=== PATIENT | male | born 2000 | race Caucasian/White ===

== ENCOUNTER 2024-02-20 21:10 | Emergency (ER) | payer OTHER, SELFPAY ==
[2024-02-20 21:11] VITALS: BP 163/99
--- NOTE | 2024-02-20 22:46 | ED.GENMED ---
History of Present Illness
General
Chief Complaint: Skin Surface Trauma
Source: patient
Exam Limitations: none
Time Seen by Provider: 02/20/24 22:39
Nursing documentation reviewed up to this point in time: agreed with
History of Present Illness
History of Present Illness:
Patient is a 23-year-old [id number] male who presents to the emergency department with a laceration of his right hand. Patient states he was trying to pry a brake pad off and it slipped and went into his hand. Patient is unsure of his
tetanus status. Patient denies any numbness or paresthesias.
Past History
Past History
ED Past Medical History: None
Social History
Tobacco: Smoker
Alcohol: Other
Drug: Other
Review of Systems
Review of Systems
All Other Systems: Not applicable
Phy Exam
Physical Exam
Physical Exam:
Physical Exam
General: No apparent distress, alert and appropriate, well nourished, well hydrated
HENT: Normocephalic, supple
Eyes: Clear sclera, conjuctiva without injection
Neuro: Alert and oriented x 3, CN II - XII intact, no motor focality, no cerebellar dysfunction
Skin: Superficial 1 cm laceration on the ulnar aspect of the fifth knuckle. Neurovascularly tendons intact. No foreign body.
Psychiatric: well kept. interactive and cooperative
Extremities: No cyanosis. Minimal tenderness over area of laceration
Course
Vital Signs
Initial and Last Documented VS:
Initial Vital Signs
Temp Pulse Resp BP Pulse Ox
97.9 F 103 14 163/99 100
02/20/24 21:11 02/20/24 21:11 02/20/24 21:11 02/20/24 21:11 02/20/24 21:11
Last Documented Vital Signs
Temp Pulse Resp BP Pulse Ox
97.9 F 103 14 163/99 100
02/20/24 21:11 02/20/24 21:11 02/20/24 21:11 02/20/24 21:11 02/20/24 21:11
Procedures
Laceration Closure
Right Ulnar Package Car Driver:
Status of Wound: clean
Size of Wound in cm: 1
Description of Wound Edges: sharp
Preparation: cleaned with Betadine
Revision/Debridement: routine- no revision
Wound exploration: explored to base- no FB
Type of Closure: Dermabond-skin glue
Number of sutures: 0
*Critical Care Note
Total Time (30-74mins, 75-104mins- exclusive of procedures): Not Applicable
ED Attending Note
-
Portions of this chart may have been created with voice recognition software.� Occasional wrong word or��sound alike� substitutions may have occurred due to the inherent limitations of voice recognition software.
Discharge Plan
Departure
Patient Disposition: Home (Routine Discharge)
Date of Disposition: 02/20/24
Time of Disposition: 22:49
Patient with high blood pressure during this ER visit?: Yes
Condition: Good
Covid-19: Not Applicable
Discharge Problem:
Laceration of right hand
Instructions: Laceration Repair With Glue (DC), Tdap vaccine, BLOOD PRESSURE
Activity Restrictions/Additional Instructions:
Keep area clean with soap and water. Acetaminophen 650 mg or ibuprofen 400 mg every 6 hours for pain.
Interventions
Interventions:
*Risk Screen - Suicide Last Done: 02/20/24 21:11
*General Assessment Last Done: 02/20/24 21:11
*Neglect/Abuse Screening Last Done: 02/20/24 21:11
*ED COVID-19 Vaccine History Last Done: 02/20/24 21:11
ED-Skin Assessment Last Done: 02/20/24 22:11
Discharge Date and Time
Print Language: [place]
[2024-02-20 23:28] VITALS: BP 150/87
[2024-02-20] MEDS: ADACEL 0.5 ML IM (23:42)
== END 2024-02-20 23:31 | disposition home or self-care (01) ==
LOC: EMR 21:10
PROVIDERS: EMERGENCY PHYSICIAN Emergency Medicine
DX: S61.411A Laceration without foreign body of right hand, initial encounter (principal); W22.8XXA Striking against or struck by other objects, initial encounter; F17.200 Nicotine dependence, unspecified, uncomplicated; Z23 Encounter for immunization
CPT/HCPCS: 12001; 90471; 99282; 90715